=== PATIENT | male | born 1940 | race Caucasian/White ===

== ENCOUNTER 2018-04-18 15:00 | Observation (INO) | payer MEDICARE ==
[~2018-04-18] VITALS: Ht 180.3 cm; Wt 94.6 kg
[2018-04-18 13:00] VITALS: BP 139/70
[~2018-04-18 15:00] MED LIST: AMLO2.5T3 PO; ASPI-555 PO; BRIM5DRO OD; DORZOLAMIDE OU; FINA5TAB41 PO; LATA2.5D2 OU; PITA2TAB2 PO; PREDNISOLONE OS; TAMS0.4C32 PO
[2018-04-22] VITALS (26 sets, daily range): BP systolic 129–163; BP diastolic 57–86
[2018-04-22] MEDS ORDERED: CEFAZOLIN SODIUM 1 GM VIAL ONE (06:14)
[2018-04-22] MEDS ORDERED: LACTATED RINGERS 1000ML 1,000 ML IV ONE ×2 (06:14→10:09)
[2018-04-22] MEDS ORDERED: MIDAZOLAM HCL 1 MG/ML 2ML VIAL ONE (07:18)
[2018-04-22] MEDS ORDERED: ONDANSETRON HCL 4 MG/2 ML VIAL ONE (07:18)
[2018-04-22] MEDS ORDERED: DEXAMETHASONE SOD PHOSPHATE 10MG/ML 1ML VIAL ONE (07:18)
[2018-04-22] MEDS ORDERED: LIDOCAINE PF 2% 5ML ABBOJECT ONE (07:18)
[2018-04-22] MEDS ORDERED: NEOSTIGMINE 5MG/5ML SYR IV ONE (07:18)
[2018-04-22] MEDS ORDERED: GLYCOPYRROLATE 0.2 MG/ML 5 ML VIAL ONE (07:18)
[2018-04-22] MEDS ORDERED: FENTANYL CITRATE PF 50 MCG/1 ML 2ML VIAL ONE (07:19)
[2018-04-22] MEDS ORDERED: PROPOFOL 10 MG/ML 20ML VIAL IV ONE (07:19)
[2018-04-22] MEDS ORDERED: CEFAZOLIN SODIUM 1 GM VIAL IVP ONE (08:00)
[2018-04-22] MEDS ORDERED: HYDRALAZINE HCL 20 MG/ML VIAL IV PRN (10:45)
[2018-04-22] MEDS ORDERED: BENZOCAINE/MENTH/CETYLPYRD CL 1 EACH LOZENGE MM PRN (10:45)
[2018-04-22] MEDS ORDERED: ONDANSETRON HCL 4 MG/2 ML VIAL IVP PRN (10:45)
[2018-04-22] MEDS ORDERED: MEPERIDINE HCL/PF 25 MG/0.5 ML AMPUL IVP PRN (10:45)
[2018-04-22] MEDS ORDERED: PROMETHAZINE HCL 25 MG/ML 1ML AMPULE IM PRN (11:15)
[2018-04-22] MEDS ORDERED: KETOROLAC TROMETHAMINE 15MG/ML IV PRN (11:45)
[2018-04-22] MEDS: LATANOPROST 2.5 ML DROPS OU SCH ×2 (14:00→19:51)
[2018-04-22] MEDS: DORZOLAMIDE HCL 2% 10ML DROPS OU SCH ×2 (14:43→19:50)
[2018-04-22] MEDS: PREDNISOLONE ACETATE 1% 5ML DROPS.SUSP OS SCH ×3 (14:43→19:50)
[2018-04-22] MEDS ORDERED: ARTIFICIAL TEARS 3.5 GM OINTMENT OU SCH (15:30)
[2018-04-22] MEDS ORDERED: ARTIFICIAL TEARS 3.5 GM OINTMENT OU PRN (16:03)
[2018-04-22] MEDS ORDERED: ARTIFICAL TEARS SOL 15 ML OU PRN (17:23)
[2018-04-22] MEDS ORDERED: TAMSULOSIN HCL 0.4 MG CAP.ER.24H PO SCH (21:00)
[2018-04-22] MEDS: TIMOLOL OD SCH (21:00)
[2018-04-22] MEDS: BRIMONIDINE TARTRATE OD SCH (21:00)
[2018-04-22] MEDS ORDERED: PITAVASTATIN CALCIUM 2 MG PO SCH (21:00)
[2018-04-22] MEDS ORDERED: FINASTERIDE 5 MG TABLET PO SCH (21:00)
[2018-04-23 03:57] VITALS: BP 162/68
[2018-04-23 05:55] LABS: CREATININE 0.9 mg/dL (0.5-1.5); POTASSIUM 3.7 mmol/L (3.5-5.1)
[2018-04-23 07:15] LABS: BASOPHILS % (AUTO) 0.1 % (0.0-5.0); HEMATOCRIT 39.9 % (42-54); LYMPHOCYTES % (AUTO) 15.3 % (21.0-51.0); MEAN CORPUSCULAR HEMOGLOBIN 31.1 pg (27.0-33.0); MEAN CORPUSCULAR HGB CONC 33.9 g/dL (32.0-36.0); MEAN CORPUSCULAR VOLUME 91.7 fL (79-99); MONOCYTES % (AUTO) 8.4 % (3.0-13.0); NEUTROPHILS % (AUTO) 76.2 % (40.0-77.0); PLATELET COUNT (AUTO) 270 K/uL (130-400); RED BLOOD CELL COUNT(AUTO) 4.35 MIL/uL (4.50-6.20); RED CELL DISTRIBUTION WIDTH 13.3 % (11.0-15.5); WHITE BLOOD COUNT (AUTO) 11.6 K/uL (4.8-10.8)
[2018-04-23 07:32] VITALS: BP 136/72
[2018-04-23] MEDS ORDERED: PANTOPRAZOLE SODIUM 40 MG TABLET.DR PO ONE (07:38)
[2018-04-23] MEDS: PREDNISOLONE ACETATE 1% 5ML DROPS.SUSP OS SCH (07:41)
[2018-04-23] MEDS: BRIMONIDINE TARTRATE OD SCH (07:41)
[2018-04-23] MEDS: LATANOPROST 2.5 ML DROPS OU SCH (07:41)
[2018-04-23] MEDS: DORZOLAMIDE HCL 2% 10ML DROPS OU SCH (07:41)
[2018-04-23] MEDS: TIMOLOL OD SCH (07:41)
[2018-04-23] MEDS ORDERED: AMLODIPINE BESYLATE 2.5 MG TAB PO SCH (09:00)
[2018-04-23] MEDS ORDERED: PANTOPRAZOLE SODIUM 40 MG TABLET.DR PO SCH (09:00)
== END 2018-04-23 12:46 | disposition home or self-care (01) ==
LOC: EDSTATUS 15:00 → DAHIP 04-22 05:30 → INTOOBSV 04-22 05:30 → 4AH 04-22 10:06
PROVIDERS: ADMIT Surgery; ATTEND Surgery
DX: N40.1 Benign prostatic hyperplasia with lower urinary tract symptoms (principal); I10 Essential (primary) hypertension; I25.10 Atherosclerotic heart disease of native coronary artery without angina pectoris; N13.8 Other obstructive and reflux uropathy; Z86.73 Personal history of transient ischemic attack (TIA), and cerebral infarction without residual deficits; Z90.79 Acquired absence of other genital organ(s); Z95.1 Presence of aortocoronary bypass graft; Z82.49 Family history of ischemic heart disease and other diseases of the circulatory system
CPT/HCPCS: 36415 ×3; 52601; 80048; 85025; 86850 ×2; 86900 ×2; 86901 ×2; 87088; 88305; 88341; 88342; A4218; A4354; A4358; A5113; G0378 ×32; J0690; J1100; J2001; J2250; J2405; J2704; J2710; J3010; J3490; J7120 ×3; J7510